=== PATIENT | female | born 1985 | race Caucasian/White ===

== ENCOUNTER 2016-03-12 17:31 | Emergency (ER) | payer OTHER ==
--- NOTE | 2016-03-12 18:40 | ERRECORD ---
[facility] EMERGENCY RECORD HPI FLU-LIKE SYNDROME CHIEF COMPLAINT: Patient presents for evaluation of body aches, Patient presents for evaluation of fever, subjective, Patient presents for evaluation of upper respiratory infection, Patient presents for evaluation of diarrhea 1 yest and 2 today. (17:51 DHAM) HISTORIAN: History provided by patient, drinking sprite today. (17:51 DHAM) LOCATION: Symptoms are generalized. (17:51 DHAM) QUALITY: Pain is dull in nature, described as aching. (17:51 DHAM) SEVERITY: Current severity of pain rated as 8/10, aching all over. (17:51 DHAM) TIME COURSE: Gradual onset of symptoms, 20, hours prior to arrival, 2yo son with similar illness. (17:51 DHAM) ASSOCIATED WITH: No associated abdominal pain, No associated chest pain, Associated with cough, No associated diarrhea, No associated flank pain, Associated with headache, No associated vomiting, No associated neck pain, No associated rash, No associated shortness of breath, No associated urinary tract infection signs or symptoms, nasal congestion and mild sore throat. Did not take a flu shot this year and is 32 weeks and smokes 1ppd. (17:51 DHAM) EXACERBATED BY: Patient's condition exacerbated by nothing. (17:51 DHAM) RELIEVED BY: Patient's condition relieved by nothing. (17:51 DHAM) IMMUNIZATION STATUS: Flu vaccine not up to date. (17:54 DHAM) ROS (17:51 DHAM) CONSTITUTIONAL: Historian reports chills, reports fatigue, reports fever. EYES: Negative eye review of systems. ENT: Historian reports rhinorrhea, reports sore throat. CARDIOVASCULAR: Negative cardiovascular review of systems. RESPIRATORY: Historian reports cough. GI: Historian denies abdominal pain, reports anorexia, reports appetite changes, denies constipation, reports diarrhea, denies nausea, denies vomiting. GENITOURINARY FEMALE: Historian denies dysuria, reports , denies urgency. MUSCULOSKELETAL: Historian reports arthralgias, reports myalgias. SKIN: Negative skin review of systems. NEUROLOGIC: Historian reports headache. ENDOCRINE: Negative endocrine review of systems. PSYCHIATRIC: Negative psychiatric review of systems. PAST MEDICAL HISTORY MEDICAL HISTORY: No past medical history, Flu vaccine not up to date, Tetanus not up to date. (17:40 ASAH) FEMALE SURGICAL HISTORY: Surgical history of &a-1R&a+25V*p+0X*[id number]*c202B*c15G*c2P*p-0X&a-25V&a+1R Name: Yuliet Gutierrez : 1985 F30 MedRec: [id number] AcctNum: [id number] Prepared: Milo Mar 12, 2016 20:02 by Interface Page 1 of 3 pMD [facility] EMERGENCY RECORD section. (17:40 ASAH) PSYCHIATRIC HISTORY: No previous psychiatric history. (17:40 ASAH) SOCIAL HISTORY: Patient denies alcohol use, Patient denies drug use, Patient currently uses tobacco, smokes cigarettes, daily, Patient smokes 1 pack per day, Patient drinks socially, rarely, Patient denies drug use, Patient currently uses tobacco, Patient smokes cigarettes, Patient smokes 0.5 packs per day, Patient has smoked for 10 years,. (17:40 ASAH) FAMILY HISTORY: Family istory is not significant. (17:41 ASAH) NOTES: I have reviewed the nursing documentation regarding PMHX, social hx, family hx, and surgical history as well as vitals and triage notes and agree. (17:57 DHAM) KNOWN ALLERGIES No Known Allergies (Unconfirmed) No Known Drug Allergies CURRENT MEDICATIONS (17:40 ASAH) None VITAL SIGNS (17:35 ASAH) VITAL SIGNS: BP: 126/86, Pulse: 119, Resp: 18, Temp: 98.8 (Oral), Pain: 8, O2 sat: 97, Time: 03/12/2016 17:35. PHYSICAL EXAM (17:51 DHAM) CONSTITUTIONAL: Vital signs reviewed, Patient afebrile, Pulse, tachycardic, Blood pressure normal, Respiratory rate normal, Patient appears non toxic, Patient appears in pain, in mild pain distress, Patient alert and oriented to person, place and time, moves a little slowly due to diffuse body aches. was chilled about an hour ago but feels hot now. HEAD: Head exam normal, Head exam included findings of head atraumatic, normocephalic. EYES: Eye exam normal, Eye exam included findings of eyelids normal to inspection, Pupils equally round and reactive to light, Extraocular muscles intact, Conjunctiva normal, Sclera normal, Fundoscopic exam normal. ENT: ENT exam normal, Ear exam normal, Nose exam included findings of, congestion and rhinorrhea, Pharynx exam normal, Uvula exam normal, Tonsil exam normal, Mouth exam normal, teeth normal. NECK: Neck exam normal, Neck exam included findings of normal range of motion, Trachea midline, no meningeal signs. RESPIRATORY CHEST: Respiratory and chest exam normal, Respiratory exam included findings of no respiratory distress, Breath sounds clear. CARDIOVASCULAR: Cardiovascular assessment normal, Cardiovascular exam included findings of heart rate regular rate and rhythm, Heart &a-1R&a+25V*p+0X*b3486G*c202B*c15G*c2P*p-0X&a-25V&a+1R Name: Yuliet Gutierrez : 1985 F30 MedRec: [id number] AcctNum: [id number] Prepared: FriMar 12, 2016 20:02 by Interface Page 2 of 3 pMD [facility] EMERGENCY RECORD sounds normal. ABDOMEN FEMALE: Abdominal exam normal, Abdominal exam included findings of abdomen nontender, Bowel sounds normal, Liver normal, Spleen normal, no distension, no peritoneal signs. BACK: Back exam normal. UPPER EXTREMITY: Upper extremity exam normal. LOWER EXTREMITY: Lower extremity exam normal. NEURO: Neuro exam normal, Marco A coma scale 15, Neuro exam findings include patient oriented to person, place and time, Speech normal, Gait normal, Memory normal, Cranial nerves intact. SKIN: Skin exam normal, Skin exam included findings of skin warm, dry, and normal in color, no rash. LYMPHATIC: Lymphatic exam normal. PSYCHIATRIC: Psychiatric exam normal, Psychiatric exam included findings of patient oriented to person place and time, Normal affect, Judgment normal, Insight normal, Remote memory normal, Recent memory normal, Concentration normal. PROBLEM LIST No recorded problems DIAGNOSIS (18:13 DHAM) FINAL: PRIMARY: influenza. PRESCRIPTION (18:13 DHAM) Tamiflu: CAPSULE : 75 mg : ORAL : Quantity: 1 Unit: cap(s) Route: ORAL Schedule: 2 times a day (before meals) Dispense: 10 Unit: cap(s) May substitute. Refills: No Refills . NOTES: 1 twice a day for 5 days No refills. DISPOSITION PATIENT: Disposition Type: Discharge, Disposition: *Discharge Home. (18:13 ALYSSA) Patient left the department. (18:30 LIBBY) Martinez: [facility]=CRISTINO Lunsford, June ALYSSA=MD Rehan, Juan Antonio LGIB=CRISTINO Tolentino, Trista &a-1R&a+25V*p+0X*p5459K*c202B*c15G*c2P*p-0X&a-25V&a+1R Name: Thangwale Yuliet M : 1985 F30 MedRec: [id number] AcctNum: [id number] Prepared: Milo Mar 12, 2016 20:02 by Interface Page 3 of 3 pMD MTDD
--- NOTE | 2016-03-12 18:52 | PICIS ---
[facility] EMERGENCY RECORD TRIAGE (17:37 ASAH) TRIAGE NOTES: pt c/o sore throat, cough and body aches since yesterday. (17:37 ASAH) PATIENT: NAME: Yuliet Gutierrez, AGE: 30, GENDER: female, : Sat 1985, TIME OF GREET: FriMar 12, 2016 17:32, PREFERRED LANGUAGE: Scottish, ETHNICITY: Not or , ECODE BILLING MAP: [facility], SSN: [id number], Zip Code: [address], KG WEIGHT: 59.87, PHONE: , , , PERSON ID: [id number], PAYMENT: X Medicaid, PCP: Raphael. (17:37 ASAH) COMPLAINT: sore throat/cough. (17:37 ASAH) ADMISSION: URGENCY: 3 Urgent, ADMISSION SOURCE: Home, TRANSPORT: CAR, BED: TRIAGE. (17:37 ASAH) IMMUNIZATIONS: Flu vaccine not up to date, Tetanus not up to date, Pneumococcal vaccine not up to date. (17:40 ASAH) SIRS SCORING: Heart Rate 55-109 (0), Temp range 96.8-101.1 (0), respiratory rate 12-24 (0), Mental status altered: yes (1), Infection or Suspected Infection: No. (17:40 ASAH) TRIAGE SCREENING: Patient denies suicidal ideation, Patient denies presence of domestic violence. (17:40 ASAH) LMP: LMP: Not Applicable, Patient is not lactating. (17:40 ASAH) PROVIDERS: TRIAGE NURSE: Piedad Lunsford RN. (17:37 ASAH) VITAL SIGNS: BP 126/86, Pulse 119, Resp 18, Temp 98.8, (Oral), Pain 8, O2 Sat 97, Time 03/12/2016 17:35. (17:35 ASAH) PREVIOUS VISIT ALLERGIES: No Known Drug Allergies. (17:37 ASAH) No Known Drug Allergies. (17:40 ASAH) KNOWN ALLERGIES No Known Allergies (Unconfirmed) No Known Drug Allergies CURRENT MEDICATIONS (17:40 ASAH) None VITAL SIGNS (17:35 ASAH) VITAL SIGNS: BP: 126/86, Pulse: 119, Resp: 18, Temp: 98.8 (Oral), Pain: 8, O2 sat: 97, Time: 03/12/2016 17:35. NURSING ASSESSMENT: ENT (17:42 ASAH) CONSTITUTIONAL: Patient arrives ambulatory, Gait steady, History obtained from patient, Patient appears comfortable, Patient cooperative, Patient alert, Oriented to person, place and time, Skin warm, Skin dry, Skin normal in color, Patient complains of sore throat and cough. PAIN: burning pain, to the throat. ENT: Mouth and throat assessment findings include mouth inspection normal. RESPIRATORY/CHEST: Breath sounds clear, Respiratory assessment findings include respiratory effort easy, Respirations regular, &a-1R&a+25V*p+0X*z7955T*c202B*c15G*c2P*p-0X&a-25V&a+1R Name: Yuliet Gutierrez : 1985 F30 MedRec: [id number] AcctNum: [id number] Prepared: Milo Mar 12, 2016 20:02 by Interface Page 1 of 6 pMD [facility] EMERGENCY RECORD Conversing normally. SAFETY: Side rails up, Cart/Stretcher in lowest position, Family at bedside, Call light within reach, Hospital ID band on. NURSING ASSESSMENT: RESPIRATORY /CHEST (17:43 ASAH) RESPIRATORY/CHEST: Breath sounds clear, Respiratory assessment findings include respiratory effort easy, Respirations regular, Conversing normally, Neck and chest exam findings include trachea midline, Chest expansion equal, Chest movement symmetrical. NURSING PROCEDURE: DISCHARGE NOTE (18:30 LGIB) DISCHARGE: Patient discharged to home, ambulating without assistance, driving self, accompanied by other family member, Summary of Care printed/ provided, Patient requested and was provided an electronic copy of Discharge Instructions, Discharge instructions given to patient, Simple or moderate discharge teaching performed, Prescriptions given and instructions on side effects given, Above person(s) verbalized understanding of discharge instructions and follow-up care, Patient treated and evaluated by physician. BELONGINGS: Belongings and valuables with patient at time of discharge include:, Belongings remain with patient, Valuables remain with patient. NURSING PROCEDURE: HEART TONES (18:04 ASAH) PATIENT IDENTIFIER: Patient actively involved in identification process, Patient's identity verified by patient stating name, Patient's identity verified by patient stating date, Patient's identity verified by hospital ID bracelet. HEART TONES: heart toned obtained with doppler, by cristino weiner, heart rate 134. FOLLOW-UP: After procedure, results given to Dr. Van. NURSING PROCEDURE: NURSE NOTES (17:44 [facility] WITH [facility]) NURSES NOTES: Notes: flu swab collected by Dr. Van at bedside. ORDER DETAILS Order Name: Influenza A&B Ag Screen, Status: Active, Time: 17:49 03/12/2016, User: KUSUM, - Ordered for: MD Van Darren, - Entered by: MD Van Darren - Milo Mar 12, 2016 17:49, - Quantity: 1. HPI FLU-LIKE SYNDROME CHIEF COMPLAINT: Patient presents for evaluation of body aches, Patient presents for evaluation of fever, subjective, Patient presents for evaluation of upper respiratory infection, Patient presents for evaluation of diarrhea 1 yest and 2 today. (17:51 DHAM) HISTORIAN: &a-1R&a+25V*p+0X*i1487N*c202B*c15G*c2P*p-0X&a-25V&a+1R Name: Yuliet Gutierrez : 1985 F30 MedRec: [id number] AcctNum: [id number] Prepared: daiana Mar 12, 2016 20:02 by Interface Page 2 of 6 pMD [facility] EMERGENCY RECORD History provided by patient, drinking sprite today. (17:51 DHAM) LOCATION: Symptoms are generalized. (17:51 DHAM) QUALITY: Pain is dull in nature, described as aching. (17:51 DHAM) SEVERITY: Current severity of pain rated as 8/10, aching all over. (17:51 DHAM) TIME COURSE: Gradual onset of symptoms, 20, hours prior to arrival, 2yo son with similar illness. (17:51 DHAM) ASSOCIATED WITH: No associated abdominal pain, No associated chest pain, Associated with cough, No associated diarrhea, No associated flank pain, Associated with headache, No associated vomiting, No associated neck pain, No associated rash, No associated shortness of breath, No associated urinary tract infection signs or symptoms, nasal congestion and mild sore throat. Did not take a flu shot this year and is 32 weeks and smokes 1ppd. (17:51 DHAM) EXACERBATED BY: Patient's condition exacerbated by nothing. (17:51 DHAM) RELIEVED BY: Patient's condition relieved by nothing. (17:51 DHAM) IMMUNIZATION STATUS: Flu vaccine not up to date. (17:54 DHAM) ROS (17:51 DHAM) CONSTITUTIONAL: Historian reports chills, reports fatigue, reports fever. EYES: Negative eye review of systems. ENT: Historian reports rhinorrhea, reports sore throat. CARDIOVASCULAR: Negative cardiovascular review of systems. RESPIRATORY: Historian reports cough. GI: Historian denies abdominal pain, reports anorexia, reports appetite changes, denies constipation, reports diarrhea, denies nausea, denies vomiting. GENITOURINARY FEMALE: Historian denies dysuria, reports , denies urgency. MUSCULOSKELETAL: Historian reports arthralgias, reports myalgias. SKIN: Negative skin review of systems. NEUROLOGIC: Historian reports headache. ENDOCRINE: Negative endocrine review of systems. PSYCHIATRIC: Negative psychiatric review of systems. PAST MEDICAL HISTORY MEDICAL HISTORY: No past medical history, Flu vaccine not up to date, Tetanus not up to date. (17:40 ASAH) FEMALE SURGICAL HISTORY: Surgical history of section. (17:40 ASAH) PSYCHIATRIC HISTORY: No previous psychiatric history. (17:40 ASAH) SOCIAL HISTORY: Patient denies alcohol use, Patient denies drug use, Patient currently uses tobacco, smokes cigarettes, daily, Patient smokes 1 pack per day, Patient drinks &a-1R&a+25V*p+0X*i7808N*c202B*c15G*c2P*p-0X&a-25V&a+1R Name: Yuliet Gutierrez : 1985 F30 MedRec: [id number] AcctNum: [id number] Prepared: Milo Mar 12, 2016 20:02 by Interface Page 3 of 6 pMD [facility] EMERGENCY RECORD socially, rarely, Patient denies drug use, Patient currently uses tobacco, Patient smokes cigarettes, Patient smokes 0.5 packs per day, Patient has smoked for 10 years,. (17:40 ASAH) FAMILY HISTORY: Family istory is not significant. (17:41 ASAH) NOTES: I have reviewed the nursing documentation regarding PMHX, social hx, family hx, and surgical history as well as vitals and triage notes and agree. (17:57 DHAM) PHYSICAL EXAM (17:51 DHAM) CONSTITUTIONAL: Vital signs reviewed, Patient afebrile, Pulse, tachycardic, Blood pressure normal, Respiratory rate normal, Patient appears non toxic, Patient appears in pain, in mild pain distress, Patient alert and oriented to person, place and time, moves a little slowly due to diffuse body aches. was chilled about an hour ago but feels hot now. HEAD: Head exam normal, Head exam included findings of head atraumatic, normocephalic. EYES: Eye exam normal, Eye exam included findings of eyelids normal to inspection, Pupils equally round and reactive to light, Extraocular muscles intact, Conjunctiva normal, Sclera normal, Fundoscopic exam normal. ENT: ENT exam normal, Ear exam normal, Nose exam included findings of, congestion and rhinorrhea, Pharynx exam normal, Uvula exam normal, Tonsil exam normal, Mouth exam normal, teeth normal. NECK: Neck exam normal, Neck exam included findings of normal range of motion, Trachea midline, no meningeal signs. RESPIRATORY CHEST: Respiratory and chest exam normal, Respiratory exam included findings of no respiratory distress, Breath sounds clear. CARDIOVASCULAR: Cardiovascular assessment normal, Cardiovascular exam included findings of heart rate regular rate and rhythm, Heart sounds normal. ABDOMEN FEMALE: Abdominal exam normal, Abdominal exam included findings of abdomen nontender, Bowel sounds normal, Liver normal, Spleen normal, no distension, no peritoneal signs. BACK: Back exam normal. UPPER EXTREMITY: Upper extremity exam normal. LOWER EXTREMITY: Lower extremity exam normal. NEURO: Neuro exam normal, Marco A coma scale 15, Neuro exam findings include patient oriented to person, place and time, Speech normal, Gait normal, Memory normal, Cranial nerves intact. SKIN: Skin exam normal, Skin exam included findings of skin warm, dry, and normal in color, no rash. LYMPHATIC: Lymphatic exam normal. PSYCHIATRIC: Psychiatric exam normal, Psychiatric exam included findings of patient oriented to person place and time, Normal affect, Judgment normal, Insight normal, Remote memory normal, Recent memory normal, Concentration normal. &a-1R&a+25V*p+0X*a3617L*c202B*c15G*c2P*p-0X&a-25V&a+1R Name: Yuliet Gutierrez : 1985 F30 MedRec: [id number] AcctNum: [id number] Prepared: FriMar 12, 2016 20:02 by Interface Page 4 of 6 pMD [facility] EMERGENCY RECORD EVENTS TRANSFER: Triage to Emergency Triage. (FriMar 12, 2016 17:37 ASAH) Emergency Triage to Emergency Room -04. (17:37 ASAH) Removed from Emergency Emergency Room -04. (18:30 LGIB) O2SAT INTERPRETATION (17:58 DHAM) O2SAT: Single pulse oximetry, Oxygen saturation 100%, on room air, Oxygen saturation interpretation: Normal, No intervention required. PROBLEM LIST No recorded problems DIAGNOSIS (18:13 DHAM) FINAL: PRIMARY: influenza. DISPOSITION PATIENT: Disposition Type: Discharge, Disposition: *Discharge Home. (18:13 DHAM) Patient left the department. (18:30 LGIB) INSTRUCTION (18:18 DHAM) DISCHARGE: INFLUENZA (ADULT). SPECIAL: Tylenol 1000mg every six hours as needed for pain or fever. Afrin 12 hour nasal spray at night for nasal congestion. TAMIFLU 75MG TWICE A DAY FOR 5 DAYS. RETURN HERE OR SEE YOUR PCP FOR FEVER OVER 48 HOURS MORE, SHORTNESS OF BREATH OR RETURN FOR ANY CONCERNS. GATORADE SMALL VOLUMES FREQENTLY NO MILK OR CAFFEINE FOR 24 HOURS. STOP SMOKING!. PRESCRIPTION (18:13 DHAM) Tamiflu: CAPSULE : 75 mg : ORAL : Quantity: 1 Unit: cap(s) Route: ORAL Schedule: 2 times a day (before meals) Dispense: 10 Unit: cap(s) May substitute. Refills: No Refills . NOTES: 1 twice a day for 5 days No refills. IMAGING (18:29 LGIB) *DISCHARGE INSTRUCTIONS RECEIPT: Image captured from scanner. *SUPPLY CHARGE SHEET: Image captured from scanner. ADMIN (19:59 DHAM) DIGITAL SIGNATURE: MD Van Darren. &a-1R&a+25V*p+0X*i6339R*c202B*c15G*c2P*p-0X&a-25V&a+1R Name: Yuliet Gutierrez : 1985 [facility] MedRec: [id number] AcctNum: [id number] Prepared: FriMar 12, 2016 20:02 by Interface Page 5 of 6 pMD [facility] EMERGENCY RECORD RESULTS (18:09 [facility]) MICROBIOLOGY: Influenza A&B Ag Screen: [id number] Collection DT: FriMar 12, 2016 18:06, See comment below , @ ER ROOM#: ER-04 Source: Nasal swab Spec Desc: , *Influenza A Antigen: POSITIVE for the , * presence of , * INFLUENZA A Antigen , * - H , Influenza B Antigen: NEGATIVE for the , presence of , INFLUENZA B Antigen , The rapid Flu A&B test can distinguish between influenza A , Influenza A&B Ag Screen See comment below , and B viruses, but it does not differentiate influenza , Influenza A&B Ag Screen See comment below , subtypes. , Influenza A&B Ag Screen See comment below , Influenza A&B Ag Screen See comment below , Influenza A&B Ag Screen See comment below , Influenza A&B Ag Screen See comment below , characteristics of this device with human specimens infected , Influenza A&B Ag Screen See comment below , with the 2008 H1N1 influenza virus have not been , Influenza A&B Ag Screen See comment below , established. For example: this test cannot distinguish , Influenza A&B Ag Screen See comment below , influenza infections caused by novel H1N1 influenza A , Influenza A&B Ag Screen See comment below , viruses versus seasonal influenza A viruses. , Influenza A&B Ag Screen See comment below , , Influenza A&B Ag Screen See comment below , A negative result does not exclude influenza virus , Influenza A&B Ag Screen See comment below , infection; therefore, if more conclusive testing is desired, , Influenza A&B Ag Screen See comment below , follow up confirmatory testing is warranted., Influenza A&B Ag Screen See comment below . Martinez: ARN[facility]=CRISTINO Lunsford, June KUSUM=MD Rehan, Juan Antonio LGIB=CRISTINO Tolentino, Trista &a-1R&a+25V*p+0X*f6271N*c202B*c15G*c2P*p-0X&a-25V&a+1R Name: Yuliet Gutierrez : 1985 [facility] MedRec: [id number] AcctNum: [id number] Prepared: Milo Mar 12, 2016 20:02 by Interface Page 6 of 6 pMD MTDD
== END 2016-03-12 18:31 | disposition home or self-care (01) ==
LOC: BURERS 17:31
DX: O99.513 Diseases of the respiratory system complicating pregnancy, third trimester (principal); J11.1 Influenza due to unidentified influenza virus with other respiratory manifestations; O99.333 Smoking (tobacco) complicating pregnancy, third trimester; Z3A.32 32 weeks gestation of pregnancy
CPT/HCPCS: 99283

== ENCOUNTER 2016-05-07 11:40 | Outpatient (CLI) | payer OTHER ==
[2016-05-07 12:14] LABS: #Basophils 0.1 thou/uL (0.0-0.2); #Eosinphils 0.5 thou/uL (0.0-0.7); #Lymphocytes 2.7 thou/uL (1.20-3.40); #Monocytes 0.6 thou/uL (0.11-0.59); #Neutrophils 7.9 thou/uL (1.40-6.50); %Eosinophils 4.1 % (0.0-10.0); %Monocytes 4.7 % (0.0-10.0); Mean Platelet Volume 6.4 fL (7.4-10.4); White Blood Cell (WBC) Count 11.7 thou/uL (4.8-10.8)
[2016-05-07 12:30] LABS: ALT (SGPT) 15 U/L (0-55); AST (SGOT) 27 U/L (5-34); Alkaline Phosphatase 83 U/L (40-150); Anion Gap 15 mmol/L (10-20); BUN (Urea Nitrogen) 9 mg/dL (7.0-18.7); Bilirubin, Total 0.8 mg/dL (0.2-1.2); Calc. Creatinine Clearance 0 mL/min (70-130); Calcium 8.9 mg/dL (7.8-10.44); Carbon Dioxide 18 mmol/L (22-29); Chloride 115 mmol/L (98-107); Estimated GFR-MDRD 82; Protein, Total 6.9 g/dL (6.0-8.3)
== END 2016-05-07 11:41 ==
LOC: HPCALD 11:40
PROVIDERS: ATTEND Physician Assistant
DX: R06.02 Shortness of breath (principal)
CPT/HCPCS: 36415; 80053; 83880; 84443; 85025

== ENCOUNTER 2016-05-07 11:44 | Outpatient (CLI) | payer OTHER ==
--- NOTE | 2016-05-07 16:50 | RAD ---
CHEST TWO VIEWS: Date: 05-07-16 Comparison: None. FINDINGS: Heart is borderline in size for the patient's age, though there is no congestive change or pleural e ffusion. The lungs are currently clear. The trachea is midline. The bony structures appear intact . The raul were unremarkable. IMPRESSION: Borderline heart size. POS: HOME
== END 2016-05-07 11:45 | disposition home or self-care (01) ==
LOC: BURRAD 11:44
PROVIDERS: ATTEND Physician Assistant
DX: R06.02 Shortness of breath (principal)
CPT/HCPCS: 36415; 71020; 80053; 83880; 84443; 85025

== ENCOUNTER 2019-02-03 08:57 | Outpatient (CLI) | payer OTHER | END 2019-02-03 08:58 | disposition home or self-care (01) | LOC: BUREKG 08:57 | PROVIDERS: ATTEND Physician Assistant | DX: O90.3 Peripartum cardiomyopathy (principal) | CPT/HCPCS: 36415; 83880; 93005; 93010 ==